=== PATIENT | female | born 1965 | race Caucasian/White ===

== ENCOUNTER 2025-05-06 10:07 | Outpatient (CLI) | payer OTHER, SELFPAY ==
--- NOTE | ~2025-05-06 | MM_ITS ---
EXAMINATION: MM screening brigid BI w conchita HISTORY: Screening TECHNIQUE: Craniocaudal and mediolateral oblique 3-D tomosynthesis images were obtained and synthetic 2-D images were generated. CAD analysis was submitted and interpreted. COMPARISON: 01/26/2009 BREAST PARENCHYMAL COMPOSITION: Not dense: There are scattered areas of fibroglandular density. FINDINGS: There is no evidence of suspicious mass, calcification, or architectural distortion to sugg est malignancy in either breast. There has been no suspicious interval change. IMPRESSION: 1. No mammographic evidence of malignancy. 2. Recommend routine screening mammography in one year. BI-RADS Category 1: Negative Reviewed, dictated and finalized at location B.
--- OUTSIDE RECORDS SUMMARY | 2025-05-06 10:23 | XMS_ITS | Data Portability ---
Author Organization [employer], Main Office Address [address] [place] [address] Assessment Encounter Date Assessment Date Assessment LastModified by Organization Details LastModified Time 09/21/2023 09/21/2023 Blood work mammogram Cologuard exercise low-fat diet watch salt regular walking follow-up 6 months. [email or web address] Not available 09/22/2023 09:20:32 Plan of Treatment Reminders Order Date Submit Date Provider Last Modified By Organization Details Last Modified Time Details Appointments None recorded. Lab noninvasive colorectal cancer DNA + occult blood screening, QL, stool 2022 023 [email or web address] [facility] (Cologuard Orders Only), [address], [address], [place], [address], 4 08:33:51 CBC w/ auto diff 2022 023 [email or web address] Not available 4 08:33:50 lipid panel, serum 2022 023 [email or web address] Not available 4 08:33:50 CMP, serum or plasma 2022 023 [email or web address] Not available 4 08:33:50 Referral None recorded. Procedures None recorded. Surgeries None recorded. Imaging MAMMO, screening, digital, bilateral 2022 023 [email or web address] Not available 4 08:34:01 Medication Orders None recorded. Patient TargetsNo targets recorded. Patient InstructionsNo instructions recorded. Reason for Referral None Reported. Results Created Date Observation Date Name Description Value Unit Range Abnormal Flag Note LastModifiedBy Organization Detail LastModifiedTime 09/20/2009/20/2024 COLOG UARD cologuard result Cancel led - Order d not applic able Not Available [facility] (Cologuard Orders Only) [address], [place], [address], 09/20/2024 09:22:19 01/04/20 22 01/03/2022 TSH thyroid-stim ulating hormone 0.945 uIU/m L 0.465- 4.680 Not Available [facility] (Lab) [address] [place], [address], 01/03/2022 13:45:47 01/04/2001/03/2022 T3 FREE free T3 3.3 pg/mL 2.77-5 .27 Not Available [facility] (Lab) [address] [place], [address], 01/03/2022 13:45:13 01/04/20 22 01/03/2022 T4 FREE free T4 1.22 NG/dL 0.78-2 .19 Not Available [facility] (Lab) [address] [place], [address], 01/03/2022 13:45:12 01/04/20 22 01/03/2022 LIPID PANEL LDL cholesterol, calculated 175 mg/dL 0-130 high NIH JENIFER NSUS REPOR T RECOM MENDA TIONS FOR LDL: ADULT CHILD LOW RISK <130 <110 (OPTI MAL LDL) <100 ----- OSCAR RLINE : 130-1 59 ----- HIGH RISK: >160 >130 A TRIGL YCERI DE RESUL T >400 INVAL IDATE S THE CALCU LATIO N FOR LDL FRACT IONAT ION - THE LDL RESUL T WILL NOT BE REPOR MORRO. Not Available [facility] (Lab) [address] [place], [address], 01/03/2022 13:43:10 01/04/20 22 01/03/2022 LIPID PANEL cholesterol 266 mg/dL 140-19 9 high NIH JENIFER NSUS RECOM MENDA TION FOR BRENT STERO L: ADULT CHILD LOW RISK: <200 <170 BORDE RLINE : <200- 239 ----- HIGH RISK: >240 >200 Not Available [facility] (Lab) [address] [place], [address], 01/03/2022 13:43:10 01/04/20 22 01/03/2022 LIPID PANEL triglyceride s 114 mg/dL 0-150 NIH JENIFER NSUS REPOR T RECOM MENDA TION FOR TRIGL YCERI BART: ADULT CHILD LOW RISK: <150 ----- BODER LINE: 150-1 99 ----- HIGH RISK: >200 ----- Not Available [facility] (Lab) [address] [place], [address], 01/03/2022 13:43:10 01/04/20 22 01/03/2022 LIPID PANEL HDL cholesterol 68 mg/dL 40- Not Available [facility] (Lab) [address] [place], [address], 01/03/2022 13:43:10 01/04/20 22 01/03/2022 COMPR EHENS RADHA METAB OLIC PANEL sodium 139 mmol/ L 137-14 5 Not Available [facility] (Lab) [address] [place], [address], 01/03/2022 13:43:08 01/04/20 22 01/03/2022 COMPR EHENS RADHA METAB OLIC PANEL potassium 4.7 mmol/ L 3.5-5. 1 Not Available [facility] (Lab) [address] [place], [address], 01/03/2022 13:43:08 01/04/20 22 01/03/2022 COMPR EHENS RADHA METAB OLIC PANEL chloride 102 mmol/ L 98-107 Not Available [facility] (Lab) [address] [place], [address], 01/03/2022 13:43:08 01/04/20 22 01/03/2022 COMPR EHENS RADHA METAB OLIC PANEL carbon dioxide 28 mmol/ L 22-30 Not Available [facility] (Lab) [address] [place], [address], 01/03/2022 13:43:08 01/04/20 22 01/03/2022 COMPR EHENS RADHA METAB OLIC PANEL agap 13.7 mmol/ L 14-22 low Not Available [facility] (Lab) [address] [place], [address], 01/03/2022 13:43:08 01/04/20 22 01/03/2022 COMPR EHENS RADHA METAB OLIC PANEL glucose 106 mg/dL 70-99 high Not Available [facility] (Lab) [address] [place], [address], 01/03/2022 13:43:08 01/04/20 22 01/03/2022 COMPR EHENS RADHA METAB OLIC PANEL BUN 21 mg/dL 8-19 high Not Available [facility] (Lab) [address] [place], [address], 01/03/2022 13:43:08 01/04/20 22 01/03/2022 COMPR EHENS RADHA METAB OLIC PANEL creatinine 0.75 mg/dL 0.66-1 .25 Not Available [facility] (Lab) [address] [place], [address], 01/03/2022 13:43:08 01/04/20 22 01/03/2022 COMPR EHENS RADHA METAB OLIC PANEL GFR >60 Refer ence Range : [place] ge GFR Healt hy Adult : >60 mL/mi n/1.7 3 m2 Chron ic Kidne y Disea se: 15-60 mL/mi n/1.7 3 m2 Kidne y Failu re: <15/m L/min /1.73 m2 www.n iddk. nih.g ov The MDRD study equat ion has not been valid ated in child veronica <18 years of age; pregn ant women ; the elder ly >85 years of age; or in some racia l or ethni c subgr oups, such as Hispa nics. Outsi de the valid ated tahmina eters , estim ated GFR is less accur ate, requi ring clini yolanda judgm ent on a case- by-ca se basis . Clini yolanda inter preta tion for other races and ages must be made by the clini dev. The MDRD study equat ion has not been valid ated for the evalu ation of serum creat inine relat ed to nutri deborah l statu s or medic ation usage . For perso ns <18 years of age, a pedia tric GFR calcu lator is avail able on the [facility] websi te: https ://rebel javed.elizabeth sweeney.o rg/pr ofess ional s/kdo qi/gf r_cal culat or Not Available [facility] (Lab) [address] [place], [address], 01/03/2022 13:43:08 01/04/20 22 01/03/2022 COMPR EHENS RADHA METAB OLIC PANEL alkaline phosphatase 50 U/L 38-126 Not Available [facility] (Lab) [address] [place], [address], 01/03/2022 13:43:08 01/04/20 22 01/03/2022 COMPR EHENS RADHA METAB OLIC PANEL alanine aminotransfe rase 26 U/L 0-35 Not Available [facility] (Lab) [address] [place], [address], 01/03/2022 13:43:08 01/04/20 22 01/03/2022 COMPR EHENS RADHA METAB OLIC PANEL aspartate aminotransfe rase 24 U/L 15-37 Not Available [facility] (Lab) [address] [place], [address], 01/03/2022 13:43:08 01/04/20 22 01/03/2022 COMPR EHENS RADHA METAB OLIC PANEL bilirubin, total 0.60 mg/dL 0.20-1 .30 Not Available [facility] (Lab) [address] [place], [address], 01/03/2022 13:43:08 01/04/20 22 01/03/2022 COMPR EHENS RADHA METAB OLIC PANEL calcium 9.9 mg/dL 8.4-10 .2 Not Available [facility] (Lab) [address] [place], [address], 01/03/2022 13:43:08 01/04/20 22 01/03/2022 COMPR EHENS RADHA METAB OLIC PANEL total protein 7.4 g/dL 6.3-8. 2 Not Available [facility] (Lab) [address] [place], [address], 01/03/2022 13:43:08 01/04/20 22 01/03/2022 COMPR EHENS RADHA METAB OLIC PANEL albumin 4.6 g/dL 3.4-5. 0 Not Available [facility] (Lab) [address] [place], [address], 01/03/2022 13:43:08 01/04/20 22 01/03/2022 COMPR EHENS RADHA METAB OLIC PANEL globulin 2.8 g/dL 2.6-4. 2 Not Available [facility] (Lab) [address] [place], [address], 01/03/2022 13:43:08 01/04/20 22 01/03/2022 COMPR EHENS RADHA METAB OLIC PANEL A/G ratio 1.6 ratio 1.0-2. 0 Not Available [facility] (Lab) [address] [place], [address], 01/03/2022 13:43:08 01/04/20 22 01/03/2022 CBC/C OMPLE TE BLD COUNT W/DIF F white blood cells 5.7 x10'3 /uL 4.2-10 .8 Not Available [facility] (Lab) [address] [place], [address], 01/03/2022 12:42:24 01/04/20 22 01/03/2022 CBC/C OMPLE TE BLD COUNT W/DIF F red blood cells 4.81 x10'6 /uL 3.80-5 .20 Not Available [facility] (Lab) [address] [place], [address], 01/03/2022 12:42:24 01/04/20 22 01/03/2022 CBC/C OMPLE TE BLD COUNT W/DIF F hemoglobin 15.1 g/dL 12.0-1 5.6 Not Available [facility] (Lab) [address] [place], [address], 01/03/2022 12:42:24 01/04/20 22 01/03/2022 CBC/C OMPLE TE BLD COUNT W/DIF F hematocrit 44.6 % 35.7-4 5.7 Not Available [facility] (Lab) [address] [place], [address], 01/03/2022 12:42:24 01/04/20 22 01/03/2022 CBC/C OMPLE TE BLD COUNT W/DIF F mean red cell volume 92.7 fL 82.0-9 9.0 Not Available [facility] (Lab) [address] [place], [address], 01/03/2022 12:42:24 01/04/20 22 01/03/2022 CBC/C OMPLE TE BLD COUNT W/DIF F mean red cell hemoglobin 31.4 pg 27.0-3 3.0 Not Available [facility] (Lab) [address] [place], [address], 01/03/2022 12:42:24 01/04/20 22 01/03/2022 CBC/C OMPLE TE BLD COUNT W/DIF F mean RBC HGB concentratio n 33.9 g/dL 31.0-3 6.0 Not Available [facility] (Lab) [address] [place], [address], 01/03/2022 12:42:24 01/04/20 22 01/03/2022 CBC/C OMPLE TE BLD COUNT W/DIF F neutrophils 59.2 % 39.0-7 2.0 Not Available [facility] (Lab) [address] [place], [address], 01/03/2022 12:42:24 01/04/20 22 01/03/2022 CBC/C OMPLE TE BLD COUNT W/DIF F red cell distribution width 12.5 % 11.8-1 5.5 Not Available [facility] (Lab) [address] [place], [address], 01/03/2022 12:42:24 01/04/20 22 01/03/2022 CBC/C OMPLE TE BLD COUNT W/DIF F platelets 214 x10'3 /uL 150-40 0 Not Available [facility] (Lab) [address] [place], [address], 01/03/2022 12:42:24 01/04/20 22 01/03/2022 CBC/C OMPLE TE BLD COUNT W/DIF F mean platelet volume 10.6 fL 9.0-12 .4 Not Available [facility] (Lab) [address] [place], [address], 01/03/2022 12:42:24 01/04/20 22 01/03/2022 CBC/C OMPLE TE BLD COUNT W/DIF F lymphocytes 31.4 % 16.0-4 7.0 Not Available [facility] (Lab) [address] [place], [address], 01/03/2022 12:42:24 01/04/20 22 01/03/2022 CBC/C OMPLE TE BLD COUNT W/DIF F monocytes 7.3 % 5.0-12 .0 Not Available [facility] (Lab) [address] [place], [address], 01/03/2022 12:42:24 01/04/20 22 01/03/2022 CBC/C OMPLE TE BLD COUNT W/DIF F eosinophils 1.2 % 1.0-7. 0 Not Available [facility] (Lab) [address] [place], [address], 01/03/2022 12:42:24 01/04/20 22 01/03/2022 CBC/C OMPLE TE BLD COUNT W/DIF F basophils 0.7 % 0.0-2. 0 Not Available [facility] (Lab) [address] [place], [address], 01/03/2022 12:42:24 01/04/20 22 01/03/2022 CBC/C OMPLE TE BLD COUNT W/DIF F immature granulocytes 0.2 % 0.00-0 .50 Not Available [facility] (Lab) [address] [place], [address], 01/03/2022 12:42:24 01/04/20 22 01/03/2022 CBC/C OMPLE TE BLD COUNT W/DIF F neutrophils, absolute count 3.40 x10'3 /uL 1.5-8. 0 Not Available [facility] (Lab) [address] [place], [address], 01/03/2022 12:42:24 01/04/20 22 01/03/2022 CBC/C OMPLE TE BLD COUNT W/DIF F lymphocytes, absolute count 1.80 x10'3 /uL 1.07-3 .43 Not Available [facility] (Lab) [address] [place], [address], 01/03/2022 12:42:24 01/04/20 22 01/03/2022 CBC/C OMPLE TE BLD COUNT W/DIF F monocytes, absolute count 0.42 x10'3 /uL 0.29-0 .99 Not Available [facility] (Lab) [address] [place], [address], 01/03/2022 12:42:24 01/04/20 22 01/03/2022 CBC/C OMPLE TE BLD COUNT W/DIF F eosinophils, absolute count 0.07 x10'3 /uL 0.02-0 .53 Not Available [facility] (Lab) [address] [place], [address], 01/03/2022 12:42:24 01/04/20 22 01/03/2022 CBC/C OMPLE TE BLD COUNT W/DIF F basophils, absolute count 0.04 x10'3 /uL 0.01-0 .08 Not Available [facility] (Lab) [address] [place], [address], 01/03/2022 12:42:24 01/04/20 22 01/03/2022 CBC/C OMPLE TE BLD COUNT W/DIF F immature granulocytes ,absolute 0.01 x10'3 /uL 0.00-0 .05 Not Available [facility] (Lab) [address] [place], [address], 01/03/2022 12:42:24 01/04/20 22 01/03/2022 CBC/C OMPLE TE BLD COUNT W/DIF F nucleated red blood cells 0.0 % -0 Not Available [facility] (Lab) [address] [place], [address], 01/03/2022 12:42:24 01/04/20 22 01/03/2022 CBC/C OMPLE TE BLD COUNT W/DIF F NRBC# 0.00 x10'3 /uL Not Available [facility] (Lab) [address] [place], [address], 01/03/2022 12:42:24 07/05/20 22 07/05/2022 COMPR EHENS RADHA METAB OLIC PANEL carbon dioxide 29 mmol/ L 22-[address] [facility] (Lab) [address] [place], [address], 07/05/2022 13:24:33 07/05/20 22 07/05/2022 COMPR EHENS RADHA METAB OLIC PANEL sodium 137 mmol/ L 137-14 5 Not Available [facility] (Lab) [address] [place], [address], 07/05/2022 13:24:33 07/05/20 22 07/05/2022 COMPR EHENS RADHA METAB OLIC PANEL potassium 4.3 mmol/ L 3.5-5. [address] [facility] (Lab) [address] [place], [address], 07/05/2022 13:24:33 07/05/20 22 07/05/2022 COMPR EHENS RADHA METAB OLIC PANEL chloride 103 mmol/ L 98-107 Not Available [facility] (Lab) [address] [place], [address], 07/05/2022 13:24:33 07/05/20 22 07/05/2022 COMPR EHENS RADHA METAB OLIC PANEL anion gap 9.3 mmol/ L 14-22 low Not Available [facility] (Lab) [address] [place], [address], 07/05/2022 13:24:33 07/05/20 22 07/05/2022 COMPR EHENS RADHA METAB OLIC PANEL glucose 106 mg/dL 70-99 high Not Available [facility] (Lab) [address] [place], [address], 07/05/2022 13:24:33 07/05/20 22 07/05/2022 COMPR EHENS RADHA METAB OLIC PANEL BUN 13 mg/dL 8-19 Not Available [facility] (Lab) [address] [place], [address], 07/05/2022 13:24:33 07/05/20 22 07/05/2022 COMPR EHENS RADHA METAB OLIC PANEL creatinine 0.82 mg/dL 0.66-1 .25 Not Available [facility] (Lab) [address] [place], [address], 07/05/2022 13:24:33 07/05/20 22 07/05/2022 COMPR EHENS RADHA METAB OLIC PANEL GFR >60 Refer ence Range : [place] ge GFR Healt hy Adult : >60 mL/mi n/1.7 3 m2 Chron ic Kidne y Disea se: 15-60 mL/mi n/1.7 3 m2 Kidne y Failu re: <15/m L/min /1.73 m2 www.n iddk. nih.g ov The MDRD study equat ion has not been valid ated in child veronica <18 years of age; pregn ant women ; the elder ly >85 years of age; or in some racia l or ethni c subgr oups, such as [facility] nics. Outsi de the valid ated tahmina eters , estim ated GFR is less accur ate, requi ring clini yolanda judgm ent on a case- by-ca se basis . Clini yolanda inter preta tion for other races and ages must be made by the clini dev. The MDRD study equat ion has not been valid ated for the evalu ation of serum creat inine relat ed to nutri deborah l statu s or medic ation usage . For perso ns <18 years of age, a pedia tric GFR calcu lator is avail able on the [facility] websi te: https ://rebel sweeney.o rg/pr ofess ional s/kdo qi/gf r_cal culat or Not Available [facility] (Lab) [address] [place], [address], 07/05/2022 13:24:33 07/05/20 22 07/05/2022 COMPR EHENS RADHA METAB OLIC PANEL alkaline phosphatase 52 U/L 38-126 Not Available [facility] (Lab) [address] [place], [address], 07/05/2022 13:24:33 07/05/20 22 07/05/2022 COMPR EHENS RADHA METAB OLIC PANEL alanine aminotransfe rase 18 U/L 0-35 Not Available [facility] (Lab) [address] [place], [address], 07/05/2022 13:24:33 07/05/20 22 07/05/2022 COMPR EHENS RADHA METAB OLIC PANEL aspartate aminotransfe rase 22 U/L 15-37 Not Available [facility] (Lab) [address] [place], [address], 07/05/2022 13:24:33 07/05/20 22 07/05/2022 COMPR EHENS RADHA METAB OLIC PANEL bilirubin, total 0.40 mg/dL 0.20-1 .30 Not Available [facility] (Lab) [address] [place], [address], 07/05/2022 13:24:33 07/05/20 22 07/05/2022 COMPR EHENS RADHA METAB OLIC PANEL calcium 9.6 mg/dL 8.4-10 .2 Not Available [facility] (Lab) [address] [place], [address], 07/05/2022 13:24:33 07/05/20 22 07/05/2022 COMPR EHENS RADHA METAB OLIC PANEL total protein 6.8 g/dL 6.3-8. 2 Not Available [facility] (Lab) [address] [facility] [place], [address], 07/05/2022 13:24:33 07/05/20 22 07/05/2022 COMPR EHENS RADHA METAB OLIC PANEL albumin 4.3 g/dL 3.4-5. 0 Not Available [facility] (Lab) [address] [place], [address], 07/05/2022 13:24:33 07/05/20 22 07/05/2022 COMPR EHENS RADHA METAB OLIC PANEL globulin 2.5 g/dL 2.6-4. 2 low Not Available [facility] (Lab) [address] [place], [address], 07/05/2022 13:24:33 07/05/20 22 07/05/2022 COMPR EHENS RADHA METAB OLIC PANEL A/G ratio 1.7 ratio 1.0-2. 0 Not Available [facility] (Lab) [address] [place], [address], 07/05/2022 13:24:33 07/05/20 22 07/05/2022 LIPID PANEL cholesterol 223 mg/dL 140-19 9 high NIH JENIFER NSUS RECOM MENDA TION FOR BRENT STERO L: ADULT CHILD LOW RISK: <200 <170 BORDE RLINE : <200- 239 ----- HIGH RISK: >240 >200 Not Available [facility] (Lab) [address] [place], [address], 07/05/2022 13:24:25 07/05/20 22 07/05/2022 LIPID PANEL triglyceride s 194 mg/dL 0-150 high NIH JENIFER NSUS REPOR T RECOM MENDA TION FOR TRIGL YCERI BART: ADULT CHILD LOW RISK: <150 ----- BODER LINE: 150-1 99 ----- HIGH RISK: >200 ----- Not Available [facility] (Lab) [address] [place], [address], 07/05/2022 13:24:25 07/05/20 22 07/05/2022 LIPID PANEL HDL cholesterol 62 mg/dL 40- Not Available [facility] (Lab) [address] [place], [address], 07/05/2022 13:24:25 07/05/20 22 07/05/2022 LIPID PANEL LDL cholesterol, calculated 122 mg/dL 0-130 NIH JENIFER NSUS REPOR T RECOM MENDA TIONS FOR LDL: ADULT CHILD LOW RISK <130 <110 (OPTI MAL LDL) <100 ----- BORDE RLINE : 130-1 59 ----- HIGH RISK: >160 >130 A TRIGL YCERI DE RESUL T >400 INVAL IDATE S THE CALCU LATIO N FOR LDL FRACT IONAT ION - THE LDL RESUL T WILL NOT BE REPOR MORRO. Not Available [facility] (Lab) [address] [place], [address], 07/05/2022 13:24:25 01/04/20 22 MAMMO , scree devin, digit al, bilat eral [facility] [address] [place] [address] Patien t Name: CORWIN ROBLEDO Access ion #: [id number] Sex: F : 1964 1 Locati on: MO2 Attend ing Physic luis: DEVENDRA MUNIZ Orderi Physic luis: DEVENDRA MUNIZ Exam Date: 022 8:01 AM Exam Name: MG DIGITA L FLORINA BILAT SCREEN Admitt ing Diagno sis(es ): RADIOL OGY REPORT - FINAL EXAM: MG DIGITA L FLORINA BILAT SCREEN HISTOR Y: screen ing mammog shanae 56-yea r-old female with no curren t breast compla ints. COMPAR EFE: None availa ble. TECHNI QUE: Bilate ral CC and MLO views of the breast s were perfor med. Digita l Mammog alessandro images were obtain ed. CAD (compu ter assist ed detect ion) was utiliz ed. FINDIN GS: There are scatte red areas of fibrog landul ar densit y. No masses , asymme tries, suspic ious calcif icatio ns, or abhinav ectura l distor tion are seen. Page 1 of 2 [facility] Marcelle javier Name: CORWIN ROBLEDO Access ion #: [id number] Sex: F : 1964 1 Exam Date: 8:01 AM Exam Name: MG FIDEL Dumas FLORINA BILAT SCREEN Admitt ing Diagno sis(es ): IMPRES GUILHERME: BIRADS 1: Assess ment comple te. Negati ve. Recomm end annual screen ing mammog alessandro. Accord ing to the [employer], yearly mammog veronica are recomm ended starti ng at age 40 and contin uing as long as the woman is in good health . Clinic al Breast Exam should be part of the period ic health exam-a bout every 3 years for women in their 20s and 30s and every year for women 40 and over. Breast self-e xam is an option for women in their 20s. Any breast change noted on the breast self-e xam she would be report ed prompt ly to the [facility]celle jav[facility] er. A negati ve mammog alessandro report should not discou rage follow -up or biopsy of a clinic ally signif icant findin g and/or abnorm ality. Dense breast tissue may obscur e small neopla sms. This marcelle javier has been entere d into a mammog alessandro remind er system with a target date for her next mammog shanae. Create d and electr onical ly signed by: Chaparro french MD Signed Date: 4:15 PM (CT) Dictat ed by: Chaparro french MD DD: 4:15 PM (CT) DT: 4:15 PM (CT) Page 2 of 2 [id number] [facility] (Imaging) [address] [place], [address], 12/07/2022 03:26:14 Result Notes Documentation Provider Name and Address Organization Details Recorded Time Mammo, Screening, Digital, Bilateral : [facility] [address] [place] [address] Patient Name: RODERICK OG Sex: Marcus : 1965 Location: [facility] Attending Physician: OPHELIA MUNIZ Ordering Physician: OPHELIA MUNIZ Exam Date: 01/03/2022 8:01 AM Exam Name: DIGITAL FLORINA BILAT SCREEN Admitting Diagnosis(es): RADIOLOGY REPORT - FINAL EXAM: MG DIGITAL FLORINA BILAT SCREEN HISTORY: screening mammogram 56-year-old female with no current breast complaints. COMPARISON: None available. TECHNIQUE: Bilateral CC and MLO views of the breasts were performed. Digital Mammography images were obtained. CAD (computer assisted detection) was utilized. FINDINGS: There are scattered areas of fibroglandular density. No masses, asymmetries, suspicious calcifications, or architectural distortion are seen. Page 1 of 2 [facility] Patient Name: RODERICK OG Sex: F : 1965 Exam Date: 01/03/2022 8:01 AM Exam Name: DIGITAL FLORINA BILAT SCREEN Admitting Diagnosis(es): IMPRESSION: BIRADS 1: Assessment complete. Negative. Recommend annual screening mammography. According to the [employer], yearly mammograms are recommended starting at age 40 and continuing as long as the woman is in good health. Clinical Breast Exam should be part of the periodic health exam-about every 3 years for women in their 20s and 30s and every year for women 40 and over. Breast self-exam is an option for women in their 20s. Any breast change noted on the breast self-exam she would be reported promptly to the patient's health care provider. A negative mammography report should not discourage follow-up or biopsy of a clinically significant finding and/or abnormality. Dense breast tissue may obscure small neoplasms. This patient has been entered into a mammography reminder system with a target date for her next mammogram. Created and electronically signed by: Chaparro Abernathy MD Signed Date: 01/03/2022 4:15 PM (CT) Dictated by: Chaparro Abernathy MD (CT) (CT) Page 2 of 2 Not Available [facility] 12/07/2022 03:26:17 Problems Name Problem SNOMED Code Status Onset Date Resolution Date Notes Provider Name and Address Organization Details Recorded Time Acute sinusitis 66501877 Completed Not Available [facility] 3 03:15:52 Insomnia 781203153 Active Not Available [facility] 3 03:15:52 Anxiety state 385911516 Active Not Available [facility] 3 03:15:52 Malaise and fatigue 034781620 Active Not Available [facility] 3 03:15:52 Essential hypertensi on 54730064 Active Not Available [facility] 3 03:15:52 Snoring 81404670 Active 2018 Not Available [facility] 3 03:15:52 Sleep apnea 15666347 Active 2018 Not Available [facility] 3 03:15:52 Headache 08137067 Active 2021 Not Available [facility] 3 03:15:52 Hyperlipid emia 73593017 Active 2021 Not Available [facility] 3 03:15:52 Problem Notes None recorded. Procedures Surgical History Date Name Laterality Status Provider Name and Address Organization Details Recorded Time completed Not Available [facility] 0 12/07/2022 03:08:08 Appendectomy completed Not Available [facility] 12/07/2022 03:08:08 Imaging Results None recorded. Procedure Notes None recorded. Medical Equipment None Reported. Allergies Allergen ID Allergen Name Allergen Category Reaction Reaction Severity Criticality Documentation Date Start Date Code Code System Note Provider Name and Address Organization Details Recorded Time 5769 Product containin g penicilli n (product) medicatio n Not available Not available Not available 12/07/2022 29095 [id number] SNOMED was when she was a child and doesn t know the react ion think s rash Not Available [facility] 3 03:25:42 Medications Name Sig Start Date Stop Date Status Note LastModified by Organization Details LastModified Time azithromy see 250 mg tablet ZPK 02/14 completed Not Available Not Available Not Available Prilosec 20 mg capsule,d elayed release Take 1 capsule every day by oral route. 2012 active Not Available Not Available Not Avai lable Zyrtec 10 mg tablet Take 1 tablet every day by oral route. 2012 active Not Available Not Available Not Avai lable ciproflox acin 250 mg tablet TK 1 T PO Q 12 H FOR 7 DAYS 11/09 completed Not Available Not Available Not Available ciproflox acin 500 mg tablet 06/18 completed Not Available Not Available Not Available Imitrex 50 mg tablet take one at onset of headache , repeat in 2 hours if needed. No more than two in 24 hours active Not Available Not Available No t Available alprazola m 0.25 mg tablet TAKE 1 TABLET BY MOUTH TWICE DAILY NEEDED active Not Available Not Available No t Available Proctozon e-HC 2.5 % topical cream perineal applicato r 02/14 completed Not Available Not Available Not Available neomycin- polymyxin -dexameth 3.5 mg/mL-10, 000 unit/mL-0 .1% eye drops INSTILL 1 DROP INTO BOTH EYES FOUR TIMES DAILY FOR 1 WEEK active Not Available Not Available No t Available lisinopri l 10 mg tablet TAKE 1 TABLET BY MOUTH EVERY DAY active Not Available Not Available No t Available mupirocin 2 % topical ointment ZION TID DIRECTED 05/28 completed Not Available Not Available Not Available lisinopri l 10 mg-hydroc hlorothia zide 12.5 mg tablet TK 1 T PO QD active Not Available Not Available No t Available Jolivette 0.35 mg tablet TK 1 T PO QD 11/09 completed Not Available Not Available Not Available rosuvasta tin 10 mg tablet TAKE 1 TABLET BY MOUTH EVERY DAY 2022 active Not Available Not Available Not Avai lable hydrochlo rothiazid e 12.5 mg tablet TAKE 1 TABLET BY MOUTH EVERY DAY active Not Available Not Available No t Available tranexami c acid 650 mg tablet TK 2 TS PO TID DURING MENSES 09/21 completed pt states she is not currentl y taking Not Available Not Available Not Available Chantix Continuin g Month Box 1 mg tablet use as directed 11/09 completed Not Available Not Available Not Available Chantix Starting Month Box 0.5 mg (11)-1 mg (42) tablets in dose pack use as directed active Not Available Not Available No t Available Vitals Date Recorded Body mass index (BMI) Body height Heart rate Body temperature Body weight Systolic And Diastolic Provider Name and Address Organization Details Last Updated DateTime 2 30.6 kg/m2 172.72 cm 70 /min 97 [degF] 95558.0 7 g 114/80 mm[Hg] Not Available [facility] 3 03:11:17 Date Recorded Body mass index (BMI) Body height Heart rate Body temperature Body weight Systolic And Diastolic Provider Name and Address Organization Details Last Updated DateTime 1 31.3 kg/m2 172.72 cm 72 /min 97.2 [degF] 99840.0 3 g 126/70 mm[Hg] Not Available [facility] 3 03:11:17 Date Recorded Body mass index (BMI) Body height Heart rate Body temperature Body weight Systolic And Diastolic Provider Name and Address Organization Details Last Updated DateTime 2 30.6 kg/m2 172.72 cm 76 /min 98.1 [degF] 11320.0 7 g 110/68 mm[Hg] Not Available [facility] 3 03:11:17 Date Recorded Body weight Body temperature Heart rate Oxygen saturation Oxygen saturation in Arterial blood by Pulse oximetry Systolic And Diastolic Provider Name and Address Organization Details Last Updated DateTime 3 22449.0 3 g 97.2 [degF] 80 /min 97 % 97 % 118/72 mm[Hg] Teresita schuler CMA [place] - [facility] 3 10:27:07 Social History Question Answer Notes LastModified by Organizat ion Details LastModified Time Tobacco Smoking Status Current Every Day Smoker Not Available [facility] 12/07/2022 02:49:43 Do You Have An Advance Directive? No MIGRATION.[id number] Information not available 12/07/2022 Do You Wear A Helmet When Biking? No MIGRATION.71653 21156 Information not available 12/07/2022 What Is Your Level Of Caffeine Consumption? Moderate MIGRATION.25680 57352 Information not available 12/07/2022 How Much Tobacco Do You Chew? None MIGRATION.54914 11007 Information not available 12/07/2022 In The 14 Days Before Symptom Onset, Have You Had Close Contact With A Laboratory-confi rmed COVID-19 While That Case Was Ill? No MIGRATION.48455 76749 Information not available 12/07/2022 In The 14 Days Before Symptom Onset, Have You Had Close Contact With A Person Who Is Under Investigation For COVID-19 While That Person Was Ill? No MIGRATION.50363 41671 Information not available 12/07/2022 What Type Of Diet Are You Following? SPECIFIC Keto MIGRATION.88417 18640 Information not available 12/07/2022 Which Illicit Or Recreational Drugs Have You Used? None MIGRATION.00894 14756 Information not available 12/07/2022 Have There Been Any Changes To Your Family Or Social Situation? No MIGRATION.77025 13976 Information not available 12/07/2022 Are There Any Guns Present In Your Home? No MIGRATION.63214 51650 Information not available 12/07/2022 Do You Use Insect Repellent Routinely? No MIGRATION.56925 47095 Information not available 12/07/2022 Where Do You Live? [place] MIGRATION.95852 62374 Information not available 12/07/2022 Do You Have A Medical Power Of Supervisor Cartography? No MIGRATION.36848 54265 Information not available 12/07/2022 What Was The Date Of Your Most Recent Tobacco Screening? 07/05/2022 MIGRATION.66118 09787 Information not available 12/07/2022 Do You Have Any Pets? No MIGRATION.28562 99809 Information not available 12/07/2022 What Is Your Relationship Status? MIGRATION.94381 50501 Information not available 12/07/2022 Do You Use Your Seat Belt Or Car Seat Routinely? Yes MIGRATION.54958 17873 Information not available 12/07/2022 Do You Have Smoke And Carbon Monoxide Detectors In Your Home? Yes MIGRATION.92959 46166 Information not available 12/07/2022 At What Age Did You Start Smoking Tobacco? 17 MIGRATION.21974 41675 Information not available 12/07/2022 Are You Passively Exposed To Smoke? Yes MIGRATION.55612 70941 Information not available 12/07/2022 Are There Any Smokers In Your House? No MIGRATION.99249 84144 Information not available 12/07/2022 How Much Tobacco Do You Smoke? 0.5 PPD MIGRATION.85883 48120 Information not available 12/07/2022 Do You Use Sunscreen Routinely? Yes MIGRATION.81217 82223 Information not available 12/07/2022 Have You Recently Traveled Abroad? No MIGRATION.72576 45572 Information not available 12/07/2022 Do You Have Any Dietary Restrictions? No MIGRATION.23823 19874 Information not available 12/07/2022 Sex: Female Functional Status Question Answer Note LastModified by [employer] Details LastModified Time Do you use any illicit or recreational drugs? No MIGRATION.194551 3291 Information not available 12/07/2022 What is your level of alcohol consumption? Occasional MIGRATION.458005 1748 Information not available 12/07/2022 Do you or have you ever used smokeless tobacco? Never used smokeless tobacco MIGRATION.422792 9558 Information not available 12/07/2022 What is your occupation? [employer] MIGRATION.498937 7756 Information not available 12/07/2022 Do you or have you ever used e-cigarettes or vape? Former user of electronic cigarettes MIGRATION.703022 1994 Information not available 12/07/2022 What is your exercise level? Occasional MIGRATION.390041 9805 Information not available 12/07/2022 Mental Status Question Answer Note LastModified by [employer] Details LastModified Time Do you feel stressed (tense, restless, nervous, or anxious, or unable to sleep at night)? [id number] MIGRATION.[id number] Information not available 12/07/2022 Family History Relationship Description Onset Age of this Age Resolved Age Notes LastModified by Organization Details LastModified Time Sister Hypertensive disorder MIGRATION.[id number] Not available 12/07/2022 03:08:12 Father Hypertensive disorder MIGRATION.[id number] Not available 12/07/2022 03:08:12 Father Dementia MIGRATION.[id number] Not available 12/07/2022 03:08:12 Brother Hypertensive disorder MIGRATION.155 [id number] Not available 12/07/2022 03:08:12 Mother Heart disease 80 MIGRATION.[id number] Not available 12/07/2022 03:08:12 Medical History Condition Response BLINDNESS N NERVE DISEASE N RHEUMATIC FEVER N BLADDER PROBLEMS N KIDNEY STONES N OTHER # 1 N POLIO N LUNG DISEASE/DISORDER N RADIATION / CHEMOTHERAPY N COPD N Other # 2 N BLOOD DISEASES N SURGERY N EAR OR HEARING PROBLEMS N MUMPS N BOWEL PROBLEMS N DEPRESSION (INCLUDING POST ) N STROKE/TIA N ULCERS N BENIGN PROSTATIC HYPERPLASIA N MEASLES N MYOCARDIAL INFARCTION N OBESITY N GERD/NAUSEA N ANEURYSM N URINARY/BLADDER/KIDNEY PROBLEMS N INPATIENT PSYCH CARE N CORONARY ARTERY DISEASE (CAD) N ADDICTION CONCERNS N ENDOMETRIOSIS N Impotence N USE OF BLOOD THINNERS N SKIN PROBLEMS N GASTROINTESTINAL DISORDER N PERIPHERAL VASCULAR DISEASE N MUSCLE,JOINT OR BONE PROBLEMS N GASTROINTESTINAL BLEEDING N BLOOD CLOTS N ASTHMA N CATARACTS N ERECTILE DYSFUNCTION N VARICOSITIES N GI PROBLEMS N Low Testosterone N INFERTILITY N AIDS/HIV N CHEMOTHERAPY / RADIATION N LIVER DISEASE N MALE HYPOGONADISM N HYPERTENSION Y Deficiency N ANXIETY DISORDER Y BLOOD TRANSFUSION N ANEMIA/BLOOD DISORDER N CHRONIC EAR INFECTIONS N BRONCHITIS N TUBERCULOSIS N GLAUCOMA N FOOT PROBLEM N DIVERTICULITIS N SLEEP APNEA Y CHICKENPOX N INFECTIOUS DISEASE N HEART ARRHYTHMIA N PROSTATE N INSOMNIA Y HIGH CHOLESTEROL / HYPERLIPIDEMIA Y HYPERTHYROIDISM N EYE PROBLEMS N NEUROLOGICAL PROBLEMS N EDEMA N CHRONIC PAIN SYNDROME N HYPOTHYROIDISM N CAROTID BLOCKAGE N CONSTIPATION N BACK / NECK PROBLEMS N HAVE YOU BEEN HOSPITALIZED OR SEEN IN [facility] IN THE PAST YEAR ? N ATHEROSCLEROSIS N BREAST PROBLEMS N DIALYSIS N ECZEMA N OSTEOPOROSIS N ARTHRITIS N APPENDICITIS N DIABETES, TYPE N BAD TEETH N ENT N HEARTBURN / REFLUX Y AUTISM SPECTRUM DISORDER (ASD) N HEPATITIS / LIVER DISEASE N PULMONARY DISEASE N GOUT N SLEEP DISORDER N ALZHEIMER'S DISEASE N Brain Problems N HERPES N DEMENTIA N HEADACHES/MIGRAINES Y SEIZURES/EPILEPSY N VASCULAR DISEASE N PACEMAKER N Blood Disorder N DIZZINESS N HEART DISEASE/HEART PROBLEMS N KIDNEY DISEASE N MULTIPLE SCLEROSIS N CARDIAC ARRHYTHMIA N CANCER: SPECIFY N ANESTHESIA COMPLICATIONS N ATRIAL FIBRILLATION N Gall Stones N PULMONARY EMBOLISM N AUTOIMMUNE DISEASE N Gynecological History Statement/Question Response Date of Last Pap Date of Last Mammogram Obstetrics History GPAL:G 0 P 0 0 0 0 Immunizations Vaccine Type Date Status Note Provider Nam e and Address Organization Details Recorded Time influenza, unspecified formulation 5 completed Not Available [facility]07/[facility]22 03:25:21 Past Encounters Encounter ID Performer Location Encounter Start Date Encounter Closed Date Diagnosis/Indication Diagnosis SNOMED-CT Code Diagnosis ICD10 Code Diagnosis Note [id number] Ophelia Muniz MD [facility] [place] [facility] [address] [facility] [address] [facility] [place] [address] 12/29/2020 00:00:00 12/29/2020 22:50:12 [id number] Ophelia Muniz MD [facility] Internal Med [place] [address] [place] [address] [place] [address] 12/23/2021 00:00:00 01/09/2022 20:48:47 [id number] Ophelia Muniz MD [facility] Internal Med [place] [facility] [address] [place] [address] [address] 07/05/2022 00:00:00 08/07/2022 15:13:59 [id number] Ophelia Muniz MD [facility] Internal [facility] [place] [address] [place] [address] [address] 09/21/2023 10:19:28 09/21/2023 11:13:39 Essential hypertension 53391756 I10 Screening mammography 24 649630 Z12.31 Screening for malignant neoplasm of colon 995003540 Z12.11 Hyperlipidemia 91625114 E78.5 Headache 67925770 R51.9 Health Concerns Section Related Observation LastModified by Organization Detai ls LastModified Time None Recorded Concern Status LastModified by Organization Details LastModified Time None Recorded Advance Directives Directive N: Payers Insurance Date Sequence Insurance Name Policy Number Policy Landers Covered Member ID Landers Member ID Guarantor Name 09/25/2023 1 [facility] [id number] Roderick M Brock [id number] Roderick M Brock 05/08/2023 1 [facility] [id number] Roderick Og [id number] Roderick M Brock OBGyn Episode No OBEpisode recorded.
--- OUTSIDE RECORDS SUMMARY | 2025-05-06 10:23 | XMS_ITS | Data Portability ---
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 Follow-up in 4 months [email or web address] Not available 02/23/2024 20:56:27 08/07/2024 08/07/2024 blood pressure i s controlled hyperlipidemia please take atorvastatin needs well-woman visit refer to Dr. Greer has Cologuard at home please use it blood work ordered follow up 4 months Chantix side effects discussed Not available 08/11/2024 15:22:01 02/04/2025 02/04/2025 Recommend that she get up-to-date on Pap smears colonoscopies she states she does have a mammogram scheduled for April we will continue current therapy set up with colonoscopy and see me in 6 months [email or web address] Not available 02/04/2025 21:24:06 Plan of Treatment Reminders Order Date Submit Date Provider Last Modified By Organization Details Last Modified Time Details Appointments ANY 15 2024 09:00A M Ophelia Muniz MD Not available Not available Not available Lab CMP, serum or plasma 2023 024 [facility], [address], [address], [place], [address], 08/08/2024 06:20:51 CBC w/ auto diff 2023 024 [facility], [address], [address], [place], [address], 08/08/2024 06:20:52 lipid panel, serum 2023 024 [facility], [address], [address], [place], [address], 08/08/2024 06:20:50 lipid panel, serum 2023 024 [facility], [address], [address], [place], [address], 02/20/2024 06:45:08 CBC w/ auto diff 2023 024 [facility], [address], [address], [place], [address], 02/20/2024 06:45:08 CMP, serum or plasma 2023 024 [facility], [address], [address], [place], [address], 02/20/2024 06:45:08 borrelia burgdorfe ri IgG panel, IB, serum 2023 024 [facility], [address], [address], [place], [address], 02/20/2024 06:45:08 Referral gynecolog ist referral 2023 024 ron Greer MD, [address], [place], [address], 04/14/2025 10:54:30 Procedures None recorded. Surgeries None recorded. Imaging MAMMO, screening , digital, bilateral 2023 [facility] (Imaging), [address], [place], [address], 04/18/2025 10:52:49 Medication Orders Chantix Continuin g Month Box 1 mg tablet 2023 [place] [address] [id number], [address], [place], [id number], 08/07/2024 12:19:17 Chantix Starting Month Box 0.5 mg (11)-1 mg (42) tablets in dose pack 2023 024 [place] [address] [facility], [address] [place], [place], [id number], 08/07/2024 12:19:17 Nurtec ODT 75 mg disintegr ating tablet 2023 024 [address] [facility], [address] [place], [place], [id number], 08/07/2024 12:19:17 Nurtec ODT 75 mg disintegr ating tablet 2023 024 [place] [facility], [address], [place], [id number], 08/07/2024 10:21:54 Patient TargetsNo targets recorded. 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 Absent Not Available [facility] ([facility]) [address] [facility], [place], [address], 02/19/2024 15:08:59 02/14/20 24 02/19/2024 LYME, LINE BLOT, SERUM IgG P66 Ab. Absent Not Available [facility] ([facility]) [address] [facility] [facility], [place], [address], 02/19/2024 15:08:59 02/14/20 24 02/19/2024 LYME, LINE BLOT, SERUM IgG P58 Ab. Absent Not Available [facility] ([facility]) [address] [facility], [place], [address], 02/19/2024 15:08:59 02/14/20 24 02/19/2024 LYME, LINE BLOT, SERUM IgG P45 Ab. Absent Not Available [facility] ([facility]) [address] [facility], [place], [address], 02/19/2024 15:08:59 02/14/20 24 02/19/2024 LYME, LINE BLOT, SERUM IgG P41 Ab. Absent Not Available [facility] ([facility]) [address] [facility], [place], [address], 02/19/2024 15:08:59 02/14/20 24 02/19/2024 LYME, LINE BLOT, SERUM IgG P39 Ab. Absent Not Available [facility] ([facility]) [address] [facility], [place], [address], 02/19/2024 15:08:59 02/14/20 24 02/19/2024 LYME, LINE BLOT, SERUM IgG P30 Ab. Absent Not Available [facility] ([facility]) [address] [facility], [place], [address], 02/19/2024 15:08:59 02/14/20 24 02/19/2024 LYME, LINE BLOT, SERUM IgG P28 Ab. Absent Not Available [facility] ([facility]) [address] [facility], [place], [address], 02/19/2024 15:08:59 02/14/20 24 02/19/2024 LYME, LINE BLOT, SERUM IgG P23 Ab. Absent Not Available [facility] ([facility]) [address] [facility] [facility], [place], [address], 02/19/2024 15:08:59 02/14/20 24 02/19/2024 LYME, LINE BLOT, SERUM IgG P18 Ab. Absent Not Available [facility] ([facility]) [address] [facility], [place], [address], 02/19/2024 15:08:59 02/14/20 24 02/19/2024 LYME, LINE BLOT, SERUM lyme IgG line blot interp. Negati ve Posit radha: 5 of the follo wing Borre andrew-s pecif ic bands : 18,23 ,28,3 0,39, 41,45 ,58, 66, and 93. Negat radha: No bands or valentino ng patte rns which do not meet posit radha crite marybeth. Not Available [facility] ([facility]) [address], [place], [address], 02/19/2024 15:08:59 02/14/20 24 02/19/2024 LYME, LINE BLOT, SERUM IgM P41 Ab. Absent Not Available [facility] ([facility]) [address] [facility], [place], [address], 02/19/2024 15:08:59 02/14/20 24 02/19/2024 LYME, LINE BLOT, SERUM IgM P39 Ab. Presen t abnormal Not Available [facility] ([facility]) [address] [facility], [place], [address], 02/19/2024 15:08:59 02/14/20 24 02/19/2024 LYME, LINE BLOT, SERUM IgM P23 Ab. Presen t abnormal Not Available [facility] ([facility]) [address] [facility], [place], [address], 02/19/2024 15:08:59 02/14/20 24 02/19/2024 LYME, LINE BLOT, SERUM lyme IgM line blot interp. Positi ve abnormal Note: An equiv ocal or posit radha EIA resul t follo wed by a negat radha Line Blot resul t is consi dered NEGAT RADHA. An equiv ocal or posit radha EIA resul t follo wed by a posit radha Line Blot is consi dered POSIT RADHA by the CDC. Posit radha: 2 of the follo wing bands : 23,39 or 41 Negat radha: No bands or valentino ng patte rns which do not meet posit radha crite marybeth. Crite marybeth for posit ivity are those recom mary d by CDC/A STPHAlesia Wyatt. p23=O sp C, p41=f sheldon plascencia Note: Sera from indiv idual s with the follo wing may cross react in the Lyme Line Blot assay s: other joshua cheta l disea ses (casandra odont al disea se, lepto joshua sis, relap sing fever , yaws, and pinta ); conne ctive autoi mmune (Rheu matoi d Arthr itis and Syste yamini Lupus Eryth emato wes and also indiv idual s with Antin uclea r Antib jean); other infec tions ([facility] Spott ed Fever ; Epste in-Ba rr Virus , and Cytom egalo virus ). Pleas e Note: Lyme immun oblot alone is not recom mary d for the diagn osis of Lyme disea se. Currgillian nt guide lines recom mend the use of a two-t iered appro ach to Lyme serol ogy testi ng to impro ve the sensi tivit y and speci ficit y of testi ng. [facility] offer s test code 50874 6 Lyme Disea se Serol ogy with Refle x to aid in the diagn osis of Lyme Disea se. Not Available [facility] ([facility]) [address] [place], [address], 02/19/2024 15:08:59 02/14/20 24 02/15/2024 LIPID PANEL cholesterol, total 255 mg/dL 100-19 9 above high normal Not Available [facility] ([facility]) [address] [place], [address], 02/19/2024 15:08:59 02/14/20 24 02/15/2024 LIPID PANEL triglyceride s 109 mg/dL 0-149 Not Available [facility] ([facility]) [address] [place], [address], 02/19/2024 15:08:59 02/14/20 24 02/15/2024 LIPID PANEL HDL cholesterol 52 mg/dL >39 Not Available [facility] ([facility]) [address] [place], [address], 02/19/2024 15:08:59 02/14/20 24 02/15/2024 LIPID PANEL VLDL cholesterol yolanda 19 mg/dL 5-40 Not Available [facility] ([facility]) [address] [place], [address], 02/19/2024 15:08:59 02/14/20 24 02/15/2024 LIPID PANEL LDL chol calc ([facility]) 184 mg/dL 0-99 above high normal Not Available [facility] ([facility]) [address] [place], [address], 02/19/2024 15:08:59 02/14/20 24 02/15/2024 COMP. METAB OLIC PANEL (14) glucose 96 mg/dL 70-99 Not Available [facility] ([facility]) [address] [place], [address], 02/19/2024 15:09:00 02/14/20 24 02/15/2024 COMP. METAB OLIC PANEL (14) BUN 15 mg/dL 6-24 Not Available [facility] ([facility]) [address] [facility] [place], [address], 02/19/2024 15:09:00 02/14/20 24 02/15/2024 COMP. METAB OLIC PANEL (14) creatinine 0.77 mg/dL 0.57-1 .00 Not Available [facility] ([facility]) [address] [facility], [place], [address], 02/19/2024 15:09:00 02/14/20 24 02/15/2024 COMP. METAB OLIC PANEL (14) eGFR 90 mL/mi n/1.7 3 >59 Not Available [facility] ([facility]) [address] [facility], [place], [address], 02/19/2024 15:09:00 02/14/20 24 02/15/2024 COMP. METAB OLIC PANEL (14) BUN/creatini ne ratio 19 9-23 Not Available [facility] ([facility]) [address] [facility], [place], [address], 02/19/2024 15:09:00 02/14/20 24 02/15/2024 COMP. METAB OLIC PANEL (14) sodium 141 mmol/ L 134-14 4 Not Available [facility] ([facility]) [address] [facility], [place], [address], 02/19/2024 15:09:00 02/14/20 24 02/15/2024 COMP. METAB OLIC PANEL (14) potassium 4.5 mmol/ L 3.5-5. 2 Not Available [facility] ([facility]) [address] [place], [address], 02/19/2024 15:09:00 02/14/20 24 02/15/2024 COMP. METAB OLIC PANEL (14) chloride 101 mmol/ L 96-106 Not Available [facility] ([facility]) [address] [place], [address], 02/19/2024 15:09:00 02/14/20 24 02/15/2024 COMP. METAB OLIC PANEL (14) carbon dioxide, total 23 mmol/ L 20-29 Not Available [facility] ([facility]) [address] [place], [address], 02/19/2024 15:09:00 02/14/20 24 02/15/2024 COMP. METAB OLIC PANEL (14) calcium 10.0 mg/dL 8.7-10 .2 Not Available [facility] ([facility]) [address] [place], [address], 02/19/2024 15:09:00 02/14/20 24 02/15/2024 COMP. METAB OLIC PANEL (14) protein, total 6.7 g/dL 6.0-8. 5 Not Available [facility] ([facility]) [address] [place], [address], 02/19/2024 15:09:00 02/14/20 24 02/15/2024 COMP. METAB OLIC PANEL (14) albumin 4.6 g/dL 3.8-4. 9 Not Available [facility] ([facility]) [address] [place], [address], 02/19/2024 15:09:00 02/14/20 24 02/15/2024 COMP. METAB OLIC PANEL (14) globulin, total 2.1 g/dL 1.5-4. 5 Not Available [facility] ([facility]) [address] [place], [address], 02/19/2024 15:09:00 02/14/20 24 02/15/2024 COMP. METAB OLIC PANEL (14) A/G ratio 2.2 1.2-2. 2 Not Available [facility] ([facility]) [address] [facility], [place], [address], 02/19/2024 15:09:00 02/14/20 24 02/15/2024 COMP. METAB OLIC PANEL (14) bilirubin, total 0.4 mg/dL 0.0-1. 2 Not Available [facility] ([facility]) [address] [facility] [place], [address], 02/19/2024 15:09:00 02/14/20 24 02/15/2024 COMP. METAB OLIC PANEL (14) alkaline phosphatase 60 IU/L 44-121 Not Available [facility] ([facility]) [address] [facility] [place], [address], 02/19/2024 15:09:00 02/14/20 24 02/15/2024 COMP. METAB OLIC PANEL (14) AST (SGOT) 16 IU/L 0-40 Not Available [facility] ([facility]) [address] [facility], [place], [address], 02/19/2024 15:09:00 02/14/20 24 02/15/2024 COMP. METAB OLIC PANEL (14) ALT (SGPT) 19 IU/L 0-32 Not Available [facility] ([facility]) [address] [facility] [facility], [place], [address], 02/19/2024 15:09:00 02/14/20 24 02/15/2024 CBC WITH DIFFE RENTI AL/PL ATELE T WBC 6.7 x10e3 /uL 3.4-10 .8 Not Available [facility] ([facility]) [address] [facility] [place], [address], 02/19/2024 15:09:00 02/14/20 24 02/15/2024 CBC WITH DIFFE RENTI AL/PL ATELE T RBC 4.97 x10e6 /uL 3.77-5 .28 Not Available [facility] ([facility]) [address] [place], [address], 02/19/2024 15:09:00 02/14/20 24 02/15/2024 CBC WITH DIFFE RENTI AL/PL ATELE T hemoglobin 14.9 g/dL 11.1-1 5.9 Not Available [facility] ([facility]) [address], [place], [address], 02/19/2024 15:09:00 02/14/20 24 02/15/2024 CBC WITH DIFFE RENTI AL/PL ATELE T hematocrit 45.2 % 34.0-4 6.6 Not Available [facility] ([facility]) [address] [place], [address], 02/19/2024 15:09:00 02/14/20 24 02/15/2024 CBC WITH DIFFE RENTI AL/PL ATELE T MCV 91 fL 79-97 Not Available [facility] ([facility]) [address] [facility], [place], [address], 02/19/2024 15:09:00 02/14/20 24 02/15/2024 CBC WITH DIFFE RENTI AL/PL ATELE T MCH 30.0 pg 26.6-3 3.0 Not Available [facility] ([facility]) [address] [place], [address], 02/19/2024 15:09:00 02/14/20 24 02/15/2024 CBC WITH DIFFE RENTI AL/PL ATELE T MCHC 33.0 g/dL 31.5-3 5.7 Not Available [facility] ([facility]) [address] [place], [address], 02/19/2024 15:09:00 02/14/20 24 02/15/2024 CBC WITH DIFFE RENTI AL/PL ATELE T RDW 12.6 % 11.7-1 5.4 Not Available [facility] ([facility]) [address] [place], [address], 02/19/2024 15:09:00 02/14/20 24 02/15/2024 CBC WITH DIFFE RENTI AL/PL ATELE T platelets 251 x10e3 /uL 150-45 0 Not Available [facility] ([facility]) [address] [facility], [place], [address], 02/19/2024 15:09:00 02/14/20 24 02/15/2024 CBC WITH DIFFE RENTI AL/PL ATELE T neutrophils 59 % notest ab. Not Available [facility] ([facility]) [address] [facility], [place], [address], 02/19/2024 15:09:00 02/14/20 24 02/15/2024 CBC WITH DIFFE RENTI AL/PL ATELE T lymphs 33 % notest ab. Not Available [facility] ([facility]) [address] [facility], [place], [address], 02/19/2024 15:09:00 02/14/20 24 02/15/2024 CBC WITH DIFFE RENTI AL/PL ATELE T monocytes 6 % notest ab. Not Available [facility] ([facility]) [address], [place], [address], 02/19/2024 15:09:00 02/14/20 24 02/15/2024 CBC WITH DIFFE RENTI AL/PL ATELE T eos 1 % notest ab. Not Available [facility] ([facility]) [address] [facility], [place], [address], 02/19/2024 15:09:00 02/14/20 24 02/15/2024 CBC WITH DIFFE RENTI AL/PL ATELE T basos 1 % notest ab. Not Available [facility] ([facility]) [address] [facility], [place], [address], 02/19/2024 15:09:00 02/14/20 24 02/15/2024 CBC WITH DIFFE RENTI AL/PL ATELE T neutrophils (absolute) 4.0 x10e3 /uL 1.4-7. 0 Not Available [facility] ([facility]) [address] [facility], [place], [address], 02/19/2024 15:09:00 02/14/20 24 02/15/2024 CBC WITH DIFFE RENTI AL/PL ATELE T lymphs (absolute) 2.2 x10e3 /uL 0.7-3. 1 Not Available [facility] ([facility]) [address], [place], [address], 02/19/2024 15:09:00 02/14/20 24 02/15/2024 CBC WITH DIFFE RENTI AL/PL ATELE T monocytes(ab solute) 0.4 x10e3 /uL 0.1-0. 9 Not Available [facility] ([facility]) [address] [facility], [place], [address], 02/19/2024 15:09:00 02/14/20 24 02/15/2024 CBC WITH DIFFE RENTI AL/PL ATELE T eos (absolute) 0.1 x10e3 /uL 0.0-0. 4 Not Available [facility] ([facility]) [address] [facility], [place], [address], 02/19/2024 15:09:00 02/14/20 24 02/15/2024 CBC WITH DIFFE RENTI AL/PL ATELE T baso (absolute) 0.0 x10e3 /uL 0.0-0. 2 Not Available [facility] ([facility]) [address] [place], [address], 02/19/2024 15:09:00 02/14/20 24 02/15/2024 CBC WITH DIFFE RENTI AL/PL ATELE T immature granulocytes 0 % notest ab. Not Available [facility] ([facility]) [address] [place], [address], 02/19/2024 15:09:00 02/14/20 24 02/15/2024 CBC WITH DIFFE RENTI AL/PL ATELE T immature grans (abs) 0.0 x10e3 /uL 0.0-0. 1 Not Available [facility] ([facility]) [address] [facility], [place], [address], 02/19/2024 15:09:00 08/07/20 24 08/08/2024 LIPID PANEL cholesterol, total 227 mg/dL 100-19 9 above high normal Not Available [facility] ([facility]) [address] [place], [address], 08/08/2024 06:20:50 08/07/20 24 08/08/2024 LIPID PANEL triglyceride s 277 mg/dL 0-149 above high normal Not Available [facility] ([facility]) [address] [place], [address], 08/08/2024 06:20:50 08/07/20 24 08/08/2024 LIPID PANEL HDL cholesterol 53 mg/dL >39 Not Available [facility] ([facility]) [address] [place], [address], 08/08/2024 06:20:50 08/07/20 24 08/08/2024 LIPID PANEL VLDL cholesterol yolanda 49 mg/dL 5-40 above high normal Not Available [facility] ([facility]) [address] [place], [address], 08/08/2024 06:20:50 08/07/20 24 08/08/2024 LIPID PANEL LDL chol calc ([facility]) 125 mg/dL 0-99 above high normal Not Available [facility] ([facility]) [address] [place], [address], 08/08/2024 06:20:50 08/07/20 24 08/08/2024 COMP. METAB OLIC PANEL (14) glucose 97 mg/dL 70-99 Not Available [facility] ([facility]) [address] [facility], [place], [address], 08/08/2024 06:20:51 08/07/20 24 08/08/2024 COMP. METAB OLIC PANEL (14) BUN 16 mg/dL 6-24 Not Available [facility] ([facility]) [address] [facility], [place], [address], 08/08/2024 06:20:51 08/07/20 24 08/08/2024 COMP. METAB OLIC PANEL (14) creatinine 0.76 mg/dL 0.57-1 .00 Not Available [facility] ([facility]) [address] [facility], [place], [address], 08/08/2024 06:20:51 08/07/20 24 08/08/2024 COMP. METAB OLIC PANEL (14) eGFR 91 mL/mi n/1.7 3 >59 Not Available [facility] ([facility]) [address] [facility], [place], [address], 08/08/2024 06:20:51 08/07/20 24 08/08/2024 COMP. METAB OLIC PANEL (14) BUN/creatini ne ratio 21 9-23 Not Available [facility] ([facility]) [address] [facility], [place], [address], 08/08/2024 06:20:51 08/07/20 24 08/08/2024 COMP. METAB OLIC PANEL (14) sodium 139 mmol/ L 134-14 4 Not Available [facility] ([facility]) [address] [facility], [place], [address], 08/08/2024 06:20:51 08/07/20 24 08/08/2024 COMP. METAB OLIC PANEL (14) potassium 4.5 mmol/ L 3.5-5. 2 Not Available [facility] ([facility]) [address] [facility], [place], [address], 08/08/2024 06:20:51 08/07/20 24 08/08/2024 COMP. METAB OLIC PANEL (14) chloride 104 mmol/ L 96-106 Not Available [facility] ([facility]) [address] [facility], [place], [address], 08/08/2024 06:20:51 08/07/20 24 08/08/2024 COMP. METAB OLIC PANEL (14) carbon dioxide, total 21 mmol/ L 20-29 Not Available [facility] ([facility]) [address] [facility], [place], [address], 08/08/2024 06:20:51 08/07/2008/08/2024 COMP. METAB OLIC PANEL (14) calcium 9.5 mg/dL 8.7-10 .2 Not Available [facility] ([facility]) [address] [facility], [place], [address], 08/08/2024 06:20:51 08/07/2008/08/2024 COMP. METAB OLIC PANEL (14) protein, total 6.2 g/dL 6.0-8. 5 Not Available [facility] ([facility]) [address] [facility], [place], [address], 08/08/2024 06:20:51 08/07/2008/08/2024 COMP. METAB OLIC PANEL (14) albumin 4.2 g/dL 3.8-4. 9 Not Available [facility] ([facility]) [address] [facility] [place], [address], 08/08/2024 06:20:51 08/07/2008/08/2024 COMP. METAB OLIC PANEL (14) globulin, total 2.0 g/dL 1.5-4. 5 Not Available [facility] ([facility]) [address] [facility], [place], [address], 08/08/2024 06:20:51 08/07/2001 0808/08/2024 COMP. METAB OLIC PANEL (14) bilirubin, total <0.2 mg/dL 0.0-1. 2 Not Available [facility] ([facility]) [address] [facility], [place], [address], 08/08/2024 06:20:51 08/07/20 24 08/08/2024 COMP. METAB OLIC PANEL (14) alkaline phosphatase 60 IU/L 44-121 Not Available [facility] ([facility]) [address] [facility], [place], [address], 08/08/2024 06:20:51 08/07/2008/08/2024 COMP. METAB OLIC PANEL (14) AST (SGOT) 14 IU/L 0-40 Not Available [facility] ([facility]) [address] [facility], [place], [address], 08/08/2024 06:20:51 08/07/20 24 08/08/2024 COMP. METAB OLIC PANEL (14) ALT (SGPT) 13 IU/L 0-32 Not Available [facility] ([facility]) [address] [facility], [place], [address], 08/08/2024 06:20:51 08/07/20 24 08/07/2024 CBC WITH DIFFE RENTI AL/PL ATELE T WBC 6.8 x10e3 /uL 3.4-10 .8 Not Available [facility] ([facility]) [address] [facility], [place], [address], 08/08/2024 06:20:52 08/07/2008/07/2024 CBC WITH DIFFE RENTI AL/PL ATELE T RBC 4.55 x10e6 /uL 3.77-5 .28 Not Available [facility] ([facility]) [address] [facility], [place], [address], 08/08/2024 06:20:52 08/07/2008/07/2024 CBC WITH DIFFE RENTI AL/PL ATELE T hemoglobin 13.8 g/dL 11.1-1 5.9 Not Available [facility] ([facility]) [address] [place], [address], 08/08/2024 06:20:52 08/07/20 24 08/07/2024 CBC WITH DIFFE RENTI AL/PL ATELE T hematocrit 41.8 % 34.0-4 6.6 Not Available [facility] ([facility]) [address] [facility] [facility], [place], [address], 08/08/2024 06:20:52 08/07/2008/07/2024 CBC WITH DIFFE RENTI AL/PL ATELE T MCV 92 fL 79-97 Not Available [facility] ([facility]) [address] [facility], [place], [address], 08/08/2024 06:20:52 08/07/20 24 08/07/2024 CBC WITH DIFFE RENTI AL/PL ATELE T MCH 30.3 pg 26.6-3 3.0 Not Available [facility] ([facility]) [address] [facility], [place], [address], 08/08/2024 06:20:52 08/07/20 24 08/07/2024 CBC WITH DIFFE RENTI AL/PL ATELE T MCHC 33.0 g/dL 31.5-3 5.7 Not Available [facility] ([facility]) [address] [place], [address], 08/08/2024 06:20:52 08/07/2008/07/2024 CBC WITH DIFFE RENTI AL/PL ATELE T RDW 12.4 % 11.7-1 5.4 Not Available [facility] ([facility]) [address] [place], [address], 08/08/2024 06:20:52 08/07/2008/07/2024 CBC WITH DIFFE RENTI AL/PL ATELE T platelets 241 x10e3 /uL 150-45 0 Not Available [facility] ([facility]) [address] [facility], [place], [address], 08/08/2024 06:20:52 08/07/20 24 08/07/2024 CBC WITH DIFFE RENTI AL/PL ATELE T neutrophils 58 % notest ab. Not Available [facility] ([facility]) [address] [facility], [place], [address], 08/08/2024 06:20:52 08/07/20 24 08/07/2024 CBC WITH DIFFE RENTI AL/PL ATELE T lymphs 33 % notest ab. Not Available [facility] ([facility]) [address] [facility], [place], [address], 08/08/2024 06:20:52 08/07/20 24 08/07/2024 CBC WITH DIFFE RENTI AL/PL ATELE T monocytes 7 % notest ab. Not Available [facility] ([facility]) [address] [facility], [place], [address], 08/08/2024 06:20:52 08/07/20 24 08/07/2024 CBC WITH DIFFE RENTI AL/PL ATELE T eos 2 % notest ab. Not Available [facility] ([facility]) [address] [facility], [place], [address], 08/08/2024 06:20:52 08/07/20 24 08/07/2024 CBC WITH DIFFE RENTI AL/PL ATELE T basos 0 % notest ab. Not Available [facility] ([facility]) [address] [facility], [place], [address], 08/08/2024 06:20:52 08/07/20 24 08/07/2024 CBC WITH DIFFE RENTI AL/PL ATELE T neutrophils (absolute) 3.9 x10e3 /uL 1.4-7. 0 Not Available [facility] ([facility]) [address] [facility], [place], [address], 08/08/2024 06:20:52 08/07/20 24 08/07/2024 CBC WITH DIFFE RENTI AL/PL ATELE T lymphs (absolute) 2.2 x10e3 /uL 0.7-3. 1 Not Available [facility] ([facility]) [address] [facility], [place], [address], 08/08/2024 06:20:52 08/07/20 24 08/07/2024 CBC WITH DIFFE RENTI AL/PL ATELE T monocytes(ab solute) 0.5 x10e3 /uL 0.1-0. 9 Not Available [facility] ([facility]) [address] [facility], [place], [address], 08/08/2024 06:20:52 08/07/20 24 08/07/2024 CBC WITH DIFFE RENTI AL/PL ATELE T eos (absolute) 0.1 x10e3 /uL 0.0-0. 4 Not Available [facility] ([facility]) [address] [facility], [place], [address], 08/08/2024 06:20:52 08/07/20 24 08/07/2024 CBC WITH DIFFE RENTI AL/PL ATELE T baso (absolute) 0.0 x10e3 /uL 0.0-0. 2 Not Available [facility] ([facility]) [address] [facility], [place], [address], 08/08/2024 06:20:52 08/07/20 24 08/07/2024 CBC WITH DIFFE RENTI AL/PL ATELE T immature granulocytes 0 % notest ab. Not Available [facility] ([facility]) [address] [facility], [place], [address], 08/08/2024 06:20:52 08/07/20 24 08/07/2024 CBC WITH DIFFE RENTI AL/PL ATELE T immature grans (abs) 0.0 x10e3 /uL 0.0-0. 1 Not Available [facility] ([facility]) [address], [place], [address], 08/08/2024 06:20:52 09/20/20 24 09/20/2024 Nonin vasiv e color ectal cance r DNA and occul t blood scree devin [Pres ence] in Stool cologuard result Cancel led - Order d colog uard resul t Not Available Not Available 12/10/2024 03:11:13 Result Notes None recorded. Problems Name Problem SNOMED Code Status Onset Date Resolution Date Notes Provider Name and Address Organization Details Recorded Time Essential hypertension 48857542 Active 2023 Dina Biggs MA null, [place] - [facility] 4 11:19:18 Headache 16067632 Active 2023 Dina Biggs MA null, [place] - [facility] 4 11:19:18 Tick bite 30980194 Active 2023 Ophelia Muniz MD Attn: Magan dugan,[address] [facility], [place], [address], [facility] - [facility] 4 20:54:32 Migraine 17315617 Active 2023 Dina Biggs MA null, [place] - [facility] 4 10:47:47 History of Malignant melanoma 269833311 Active 2024 Ophelia Muniz MD Attn: Magan dugan,[address] [facility], [place], [address], [facility] - [facility] 5 21:22:18 Mixed hyperlipidemia 179140430 Active 2024 Ophelia Muniz MD Attn: Magan dugan,[address] [facility], [place], [address], [facility] - [facility] 5 21:24:32 Problem Notes None recorded. Procedures Surgical History Date Name Laterality Status Provider Name and Address Organization Details Recorded Time Appendectomy completed FEROZ Carson - [facility] 02/14/2024 10:10:59 Imaging Results None recorded. Procedure Notes None recorded. Medical Equipment None Reported. Allergies Allergen ID Allergen Name Allergen Category Reaction Reaction Severity Criticality Documentation Date Start Date Code Code System Note Provider Name and Address Organization Details Recorded Time 405546 Prilosec medicatio n Not available Not available Not available 02/14/2024 25524 5 RxNorm FEROZ Carson, [place] - [facility] 4 10:10:08 055157 Product containin g penicilli n (product) medicatio n Not available Not available Not available 02/14/2024 37724 8001 SNOMED Crystal Guadalupe MA null, [place] - [facility] 4 10:09:51 Medications Name Sig Start Date Stop Date Status Note LastModified by Organization Details LastModified Time doxycycline hyclate 100 mg capsule TAKE 1 CAPSULE BY MOUTH TWICE DAILY FOR 14 DAYS 08/07 completed Not Available Not Available Not Available atorvastatin 10 mg tablet TAKE 1 TABLET BY MOUTH EVERY OTHER DAY active Not Available Not Available No t Available neomycin-rae ymyxin-dexam eth 3.5 mg/mL-10,000 unit/mL-0.1% eye drops INSTILL 1 DROP INTO BOTH EYES FOUR TIMES DAILY FOR 1 WEEK 08/07 completed Not Available Not Available Not Available lisinopril 10 mg tablet TAKE 1 TABLET BY MOUTH EVERY DAY 2024 active Not Available Not Available Not Avai lable hydrochlorot hiazide 12.5 mg capsule TAKE 1 CAPSULE BY MOUTH EVERY DAY 2024 active Not Available Not Available Not Avai lable Prilosec OTC active Not Available Not Available Not Available hydrochlorot hiazide 12.5 mg tablet TAKE 1 TABLET BY MOUTH EVERY DAY 08/07 completed Not Available Not Available Not Available Chantix Continuing Month Box 1 mg tablet Take 1 tablet twice a day by oral route as directed . 2023 active Not Available Not Available Not Avai lable Chantix Starting Month Box 0.5 mg (11)-1 mg (42) tablets in dose pack Take 1 startr pk by oral route as directed . 2023 active Not Available Not Available Not Avai lable Nurtec ODT 75 mg disintegrati ng tablet Take 1 tablet every day by oral route as needed, for PRN Migraine . 2023 active Not Available Not Available Not Avai lable Vitals Date Recorded Body height Body mass index (BMI) Body weight Heart rate Oxygen saturation Oxygen saturation in Arterial blood by Pulse oximetry Systolic And Diastolic Provider Name and Address Organization Details Last Updated DateTime 5 172.72 cm 31.2 kg/m2 14365.0 8 g 75 /min 98 % 98 % 112/68 mm[Hg] Lolita Malik MA [facility] 5 16:34:45 Date Recorded Body height Body mass index (BMI) Body weight Heart rate Oxygen saturation Oxygen saturation in Arterial blood by Pulse oximetry Systolic And Diastolic Provider Name and Address Organization Details Last Updated DateTime 4 172.72 cm 31 kg/m2 04581.1 3 g 84 /min 99 % 99 % 128/82 mm[Hg] Crystal Guadalupe MA [facility] 4 10:14:22 Date Recorded Body height Body mass index (BMI) Body weight Heart rate Oxygen saturation Oxygen saturation in Arterial blood by Pulse oximetry Systolic And Diastolic Provider Name and Address Organization Details Last Updated DateTime 4 172.72 cm 31.3 kg/m2 64080.3 1 g 80 /min 96 % 96 % 108/78 mm[Hg] Cookie Hayes MA [facility] 4 10:20:58 Social History Question Answer Notes LastModified by Organizat ion Details LastModified Time Tobacco Smoking Status Current Every Day [facility] 02/14/[facility]24 10:12:09 Do You Have An Advance Directive? No Information not available 08/07/2024 Are You Blind Or Do You Have Difficulty Seeing? No Information not available 02/14/2024 What Is Your Level Of Caffeine Consumption? Occasional Information not available 08/07/2024 In The 14 Days Before Symptom Onset, Have You Had Close Contact With A Laboratory-confir med COVID-19 While That Case Was Ill? No Information not available 08/07/2024 In The 14 Days Before Symptom Onset, Have You Had Close Contact With A Person Who Is Under Investigation For COVID-19 While That Person Was Ill? No Information not available 08/07/2024 Have You Been To An Area Known To Be High Risk For COVID-19? No Information not available 08/07/2024 Are You Deaf Or Do You Have Serious Difficulty Hearing? No Information not available 02/14/2024 What Type Of Diet Are You Following? REGULAR Information not available 08/07/2024 Are There Any Guns Present In Your Home? No Information not available 08/07/2024 What Was The Date Of Your Most Recent Tobacco Screening? 02/04/2025 Information not available 02/04/2025 What Is Your Relationship Status? Domestic Partner Information not available 02/14/2024 Do You Use Your Seat Belt Or Car Seat Routinely? Yes Information not available 02/14/2024 Do You Have Smoke And Carbon Monoxide Detectors In Your Home? Yes Information not available 08/07/2024 How Much Tobacco Do You Smoke? 0.5 PPD Information not available 02/14/2024 Do You Use Sunscreen Routinely? Yes Information not available 08/07/2024 Has Tobacco Cessation Counseling Been Provided? Yes Information not available 02/04/2025 On What Date Was Tobacco Cessation Counseling Provided? 02/04/2025 Information not available 02/04/2025 How Many Years Have You Smoked Tobacco? 35 Information not available 02/14/2024 Sex: Female Functional Status Question Answer Note LastModified by Organizat ion Details LastModified Time Do you use any illicit or recreational drugs? No Information not available 08/07/2024 What is your level of alcohol consumption? None Information not available 02/14/2024 Are you able to care for yourself independently? Yes Information not available 02/14/2024 Mental Status Question Answer Note LastModified by Organization D etails LastModified Time Do you feel stressed (tense, restless, nervous, or anxious, or unable to sleep at night)? [id number] Information not available 02/14/2024 Family History Relationship Description Onset Age of this Age Resolved Age Notes LastModified by Organization Details LastModified Time Father Dementia [email or web address] Not availabl e 02/14/2024 10:11:08 Father Hypertensive disorder [email or web address] Not available 2023 10:11:18 Brother Hypertensive disorder [email or web address] Not available 2023 10:11:18 Brother Hypercholest erolemia apaytonma Not available 2023 10:11:25 Brother Migraine [email or web address] Not availab le 02/14/2024 10:11:33 Brother Myocardial infarction [email or web address] Not available 02/13 10:11:42 Sister Hypertensive disorder apaytonma Not available 2023 10:11:18 Sister Myocardial infarction apaytonma Not available 02/13 10:11:42 Mother Migraine apaytonma Not availabl e 02/14/2024 10:11:33 Medical History Condition Response Anxiety Disorder Y High Blood Pressure Y Acid Reflux (GERD) Y Allergies Y High Cholesterol Y Headaches Y Gynecological HistoryNo gynecological history recorded. Obstetrics History GPAL:G 0 P 0 0 0 0 Immunizations Vaccine Type Date Status Note Provider Nam e and Address Organization Details Recorded Time influenza, unspecified formulation 07/21/2015 completed Dina Biggs MA [facility] 08/07/2024 10:20:15 Past Encounters Encounter ID Performer Location Encounter Start Date Encounter Closed Date Diagnosis/Indication Diagnosis SNOMED-CT Code Diagnosis ICD10 Code Diagnosis Note [id number] [facility] [address] [place] [phone] 02/14/2024 09:48:04 02/14/2024 11:39:41 Essential hypertension 02492420 I10 Headache 85286026 R51.9 Tick bite 13451345 W57.X XXA Gynecologi c examination 20104019 Z01.419 Screening mammography 24 732154 Z12.31 [id number] MD Erica Koehler (Adult Med) [address] [place] [phone] 08/07/2024 10:03:08 08/07/2024 10:45:30 Body mass index 30+ - obesity 219862644 Z68.31 Obesity 184737278 E66.9 Essential hypertension 37372286 I10 Hyperlipidemia 57965198 E78.5 Migraine 37478475 G43.90 9 Smoker 02104961 F17.628 [id number] Ophelia Muniz MD [facility] (Adult Med) [address] [place] [phone] 02/04/2025 16:14:23 02/04/2025 17:37:57 Cigarette smoker 70200951 F17.210 Smoker 80369287 F17.200 Body mass index 30+ - obesity 190251055 Z68.31 Obese class I 0829226446 92442 E66.811 Essential hypertension 02591243 I10 Migraine 27728038 G43.90 9 Mixed hyperlipidemia 267 168940 E78.2 Health Concerns Section Related Observation LastModified by Organization Detai ls LastModified Time None Recorded Concern Status LastModified by Organization Details LastModified Time None Recorded Advance Directives Directive N: Payers Insurance Date Sequence Insurance Name Policy Number Policy Landers Covered Member ID Landers Member ID Guarantor Name 02/04/2025 1 [facility] ([facility]) [id number] Courtney Aleydabrian [id number] Courtney Brock 02/04/[address] [place] [address] [id number] Courtney Leumaria del carmen [id number] Courtney Aleydabrian 02/04/2025 1 [facility] ([facility]) [id number] [place] [id number] Courtney Ravennyabrian OBGyn Episode No OBEpisode recorded.
== END 2025-05-06 10:08 | disposition home or self-care (01) ==
LOC: ANHIMG 10:13
PROVIDERS: Visit Provider Internal Medicine
DX: Z12.31 Encounter for screening mammogram for malignant neoplasm of breast (principal)
CPT/HCPCS: 77063; 77067